=== PATIENT | male | born 1955 | race African-American/Black ===

== ENCOUNTER 2017-03-28 08:07 | Day surgery (SDC) | payer OTHER ==
[2017-03-25 15:47] VITALS: BMI 30.4
[~2017-03-28 08:07] MED LIST: LEVOFLOXACIN 500 MG PREMIX BAG IVPB ONE
[2017-03-28] MEDS ORDERED: MIDAZOLAM HCL 2 MG/2 ML SINGLE DOSE VIAL ONE (09:21)
[2017-03-28] MEDS ORDERED: LEVOFLOXACIN 500 MG PREMIX BAG IVPB ONE (09:36)
[2017-03-28] MEDS ORDERED: LIDOCAINE HCL/PF 2% SDV 5ML VIAL ONE (09:39)
[2017-03-28] MEDS ORDERED: oxyCODONE HCL 5 MG TABLET PO PRN (09:56)
[2017-03-28] MEDS ORDERED: ONDANSETRON 4 MG/2 ML VIAL IVPUSH PRN (09:56)
[2017-03-28] MEDS ORDERED: LACTATED RINGERS SOLUTION 1,000 ML IV SCH (10:00)
[2017-03-28 11:05] VITALS: TEMP 97.7
[2017-03-28 11:07] VITALS: PULSE 54
[2017-03-28 12:41] VITALS: BP 141/79
--- NOTE | 2017-03-28 15:05 | OP ---
Operative Note - Note: Operative Date: 03/28/17 Pre-Operative Diagnosis: left renal stone Operation: left eswl Findings: 7 mm x 5 mm left lower pole stone Post-Operative Diagnosis: Same as Pre-op Surgeon: Humble Puga Anesthesia: Fractional
== END 2017-03-28 11:50 | disposition home or self-care (01) ==
LOC: JASU-SURG 08:07
PROVIDERS: ATTEND Urology
PROC: 0TF4XZZ Fragmentation in Left Kidney Pelvis, External Approach (ICD-10-PCS; principal; 2017-03-28 09:30)
DX: N20.0 Calculus of kidney (principal)

== ENCOUNTER 2019-01-15 07:59 | Day surgery (SDC) | payer OTHER ==
[2019-01-12 15:39] VITALS: BMI 30.4
[2019-01-15] MEDS ORDERED: MIDAZOLAM HCL 2 MG/2 ML SINGLE DOSE VIAL ONE (10:45)
[2019-01-15] MEDS ORDERED: PROPOFOL 20 ML ONE (10:45)
[2019-01-15] MEDS ORDERED: DEXAMETHASONE SOD PHOSPHATE 4 MG/1 ML VIAL ONE (10:46)
[2019-01-15 12:44] VITALS: TEMP 97.5
[2019-01-15 12:46] VITALS: BP 146/78; PULSE 54
--- NOTE | 2019-01-15 13:11 | OP ---
Operative Note - Note: Operative Date: 01/15/19 Pre-Operative Diagnosis: Left renal stone Operation: Left ESWL Findings: 8 mm lower pole Left renal stone Surgeon: Humble Puga Anesthesia: Fractional Estimated Blood Loss (mls): 0 Drains, Volume Out (mls): 0 Operative Report Dictated: Yes
--- NOTE | 2019-01-15 20:38 | OP ---
DATE OF OPERATION: 01/15/2019 PREOPERATIVE DIAGNOSIS: Left renal stone. POSTOPERATIVE DIAGNOSIS: Left renal stone. PROCEDURE: Left extracorporeal shock-wave lithotripsy. ATTENDING: Srikanth Landrum MD ANESTHESIA: Fractional. DESCRIPTION OF PROCEDURE: Patient was brought in the operating room and placed in a supine position on the operating room table. Ultrasonography and fluoroscopy were performed. An 8-mm left lower pole stone was identified. At this point, anesthesia and preoperative antibiotics were administered. Shock-wave lithotripsy was then performed; 3000 impulses at 18 joules of power were administered to the stone. Excellent fragmentation of the stone was noted under real time ultrasonography and fluoroscopy. The patient tolerated the procedure very well. DISPOSITION OF THE PATIENT: To the recovery room. SRIKANTH LANDRUM M.D. [id number]
== END 2019-01-15 12:51 | disposition home or self-care (01) ==
LOC: JASU-SURG 07:59
PROVIDERS: ATTEND Urology
PROC: 0TF4XZZ Fragmentation in Left Kidney Pelvis, External Approach (ICD-10-PCS; principal; 2019-01-15 10:15)
DX: N20.0 Calculus of kidney (principal)

== ENCOUNTER 2023-05-30 04:02 | Day surgery (SDC) | payer OTHER ==
[2023-05-26 09:21] VITALS: BMI 29.6
[2023-05-30] MEDS ORDERED: MIDAZOLAM HCL 2 MG/2 ML SINGLE DOSE VIAL ONE (10:24)
[2023-05-30 11:18] VITALS: RESP 18
[2023-05-30 11:54] VITALS: BP 137/86; PULSE 56; TEMP 97.7
== END 2023-05-30 12:00 | disposition home or self-care (01) ==
LOC: JASU-SURG 04:02
PROVIDERS: ATTEND Urology
PROC: 0TF4XZZ Fragmentation in Left Kidney Pelvis, External Approach (ICD-10-PCS; principal; 2023-05-30 09:30)
DX: N20.0 Calculus of kidney (principal)